=== PATIENT | male | born 1950 | race African-American/Black ===

== ENCOUNTER 2024-03-22 08:22 | Outpatient (CLI) | payer OTHER | END 2024-03-22 08:23 | disposition home or self-care (01) | LOC: CSHCT 08:22 | PROVIDERS: ATTEND Thoracic Surgery (Cardiothoracic Vascular Surgery) | DX: I65.23 Occlusion and stenosis of bilateral carotid arteries (principal) | CPT/HCPCS: 70498; 82565 ==